=== PATIENT | female | born 1985 | race Caucasian/White ===

== ENCOUNTER 2020-12-02 15:34 | Emergency (ER) | payer OTHER ==
[2020-12-02] MEDS ORDERED: FLORASTOR250 MG PO (17:08)
== END 2020-12-02 18:40 | disposition home or self-care (01) ==
LOC: ER1 15:34
DX: Z23 Encounter for immunization (principal); U07.1 COVID-19; Z88.1 Allergy status to other antibiotic agents
CPT/HCPCS: 99284; M0239